=== PATIENT | female | born 1945 | race Caucasian/White ===

== ENCOUNTER → 2016-09-27 | Outpatient (CLI) | payer MEDICARE, OTHER ==
[2015-05-02 18:37] VITALS: BP 171/92
[~2016-09-27] MED LIST: ASPI-630 PO; ATOR10TA PO; BUPR1PAT7 TD; CELE50CA PO; ESTR0.5T3 PO; MEDR2.5T PO; POTA99TA PO; VIT1CAPS11 PO
--- NOTE | 2016-09-27 17:49 | RAD ---
PROCEDURE Left lower extremity venous Doppler dated 09/27/2016. HISTORY Left calf pain. TECHNIQUE Grayscale, color flow and spectral waveform analysis performed. COMPARISON None. FINDINGS Normal compressibility, phasicity and augmentation of flow throughout. No filling defects are seen. There is a small popliteal cyst measuring up to 2.2 centimeters craniocaudal dimension. There is fluid tracking along the posterior calf musculature measuring up to 3.9 centimeters. IMPRESSION - No evidence of left lower extremity deep vein thrombosis. - Ruptured popliteal cyst. Electronically signed by: Bill Esquivel (September 27, 2016 17:48:19)
== END | disposition home or self-care (01) ==
LOC: US 16:47
PROVIDERS: ATTEND Physician Assistant
DX: M79.662 Pain in left lower leg (principal); M66.0 Rupture of popliteal cyst
CPT/HCPCS: 93971

== ENCOUNTER → 2016-11-23 | Outpatient (CLI) | payer MEDICARE, OTHER ==
[2015-05-02 18:37] VITALS: BP 171/92
--- NOTE | 2016-11-23 13:49 | RAD ---
CT chest without contrast 11/23/2016 at 1118 hours Indication: Cough Comparison: CT chest 12/04/2007 Technique: Multiple axial CT images of the chest were performed without intravenous contrast. Coronal and sagittal reformats are provided. Findings: Thyroid gland is normal in appearance. The lack of intravenous contrast limits evaluation for mediastinal and hilar lymph nodes. Heart size is within normal limits. No pathologically enlarged axillary, mediastinal or hilar lymph nodes are identified. Thoracic aorta is normal in course and caliber. There is a moderate size hiatal hernia, progressed since the prior examination. The lungs are clear. Minimal biapical pleural-parenchymal scarring is present. No pulmonary infiltrates or suspicious pulmonary nodules. No pneumothorax. Mild superior endplate compression deformity of L2, likely chronic. Subcentimeter hypodense lesions within the hepatic parenchyma are statistically favored to represent simple cysts. Otherwise, the visualized upper abdomen is normal. Impression: 1. No pulmonary infiltrates or suspicious pulmonary nodules. 2. Moderate-sized hiatal hernia which has progressed since 2007. PQRS Compliance Statement: One or more of the following individualized dose reduction techniques were utilized for this examination: 1. Automated exposure control 2. Adjustment of the mA and/or kV according to patient size 3. Use of iterative reconstruction technique
== END | disposition home or self-care (01) ==
LOC: CT 10:33
PROVIDERS: ATTEND Family Medicine
DX: R05 Cough (principal); K44.9 Diaphragmatic hernia without obstruction or gangrene; J98.4 Other disorders of lung; K76.89 Other specified diseases of liver; Z87.891 Personal history of nicotine dependence
CPT/HCPCS: 71250

== ENCOUNTER → 2017-02-14 | Outpatient (CLI) | payer MEDICARE, OTHER ==
[2015-05-02 18:37] VITALS: BP 171/92
--- NOTE | 2017-02-14 11:08 | RAD ---
Radionuclide gastric emptying study, 02/14/2017: History: Heartburn and nausea The study was performed utilizing a solid test meal radiolabeled with 2 mCi of technetium 99m sulfur colloid. Imaging was obtained out to one hour. A moderate-sized hiatal hernia is present. Some activity does extend into the small bowel. The time activity curve is relatively flat. An accurate T1/2 cannot be calculated in this situation. IMPRESSION: 1. Moderate sized hiatal hernia. 2. Markedly delayed gastric emptying.
== END | disposition home or self-care (01) ==
LOC: NM 08:29
PROVIDERS: ATTEND Internal Medicine Gastroenterology
DX: K44.9 Diaphragmatic hernia without obstruction or gangrene (principal); R12 Heartburn; R11.0 Nausea
CPT/HCPCS: 78264; A9541

== ENCOUNTER → 2017-09-08 | Outpatient (CLI) | payer MEDICARE, OTHER ==
[2015-05-02 18:37] VITALS: BP 171/92
--- NOTE | 2017-09-08 16:20 | RAD ---
DATE: 09/08/2017 EXAM: DIGITAL DIAGNOSTIC LT, BREAST LEFT HISTORY: Abnormal screening study COMPARISON: 08/31/2017, 08/11/2015 This study was interpreted with the benefit of Computerized Aided Detection (CAD). The breast parenchyma is heterogeneously dense, which could reduce sensitivity of mammography. Breast parenchyma level C. FINDINGS: 2-D and 3-D tomosynthesis imaging was obtained. Spot compression views were also obtained of the area of suspicion described in the upper outer quadrant of the left breast on the screening study. The spot compression views do not demonstrate a discrete mass. No mass is identified in this region on the tomosynthesis images or the straight mediolateral view.The appearance in this region on the oblique view of the screening study appears to have been due to a summation of fibroglandular shadows rather than a true mass. There are scattered benign type calcifications in the left breast. There is a tight cluster of granular type calcifications located just superior to the midline of the left breast. These were also evident on previous studies. The cc view from the 08/11/2015 study demonstrates a similar cluster. Left breast ultrasound, 09/08/2017: A targeted ultrasound exam of the upper outer quadrant left breast was performed. No breast mass is seen. Several small normal-appearing ducts are seen centrally. IMPRESSION: 1. No mammographic or sonographic evidence of a mass in the upper outer quadrant of the left breast. 2. A cluster of microcalcifications at the 12:00 location in the left breast appears unchanged since 08/11/2015, which would favor a benign etiology. Regular yearly mammographic surveillance is suggested. BI-RADS CATEGORY: 2 BENIGN FINDING(S) RECOMMENDED FOLLOW-UP: 12M 12 MONTH FOLLOW-UP PQRS compliance statement: Patient information was entered into a reminder system with a target due date for the next mammogram. Mammography is a sensitive method for finding small breast cancers, but it does not detect them all and is not a substitute for careful clinical examination. A negative mammogram does not negate a clinically suspicious finding and should not result in delay in biopsying a clinically suspicious abnormality. "Our facility is accredited by the [employer] Mammography Program."
== END | disposition home or self-care (01) ==
LOC: MAMMO 09:03
PROVIDERS: ATTEND Family Medicine
DX: R92.8 Other abnormal and inconclusive findings on diagnostic imaging of breast (principal)
CPT/HCPCS: 76641; 77065